=== PATIENT | female | born 1955 | race Caucasian/White ===

== ENCOUNTER 2023-05-18 10:45 | Emergency (ER) | payer OTHER ==
[~2023-05-18] VITALS: Ht 167.6 cm; Wt 84.1 kg
[2023-05-18 11:22] LABS: BASOPHILS # (AUTO) 0.1 X10'3 (0-0.2); BASOPHILS % (AUTO) 0.4 % (0-1); EOSINOPHILS # (AUTO) 0.1 X10'3 (0-0.9); EOSINOPHILS % (AUTO) 0.8 % (0-6); HEMATOCRIT 37.5 % (35.0-45.0); HEMOGLOBIN 11.7 g/dl (12.0-16.0); LYMPHOCYTES % (AUTO) 6.4 % (21-51); MEAN CORPUSCULAR HEMOGLOBIN 27.2 PG (27.0-31.0); MEAN CORPUSCULAR HGB CONC 31.2 g/dL (33.0-36.5); MEAN PLATELET VOLUME 7.1 FL (7.4-10.4); MONOCYTES % (AUTO) 5.9 % (2-12); NEUTROPHILS % (AUTO) 86.5 % (42-75); PLATELET COUNT 461 X10'3 (140-440); RED BLOOD COUNT 4.31 X10'6 (4.20-5.60); RED CELL DISTRIBUTION WIDTH 14.6 % (11.5-14.5); WHITE BLOOD COUNT 16.2 X10'3 (4.5-11.0)
[2023-05-18 11:35] LABS: ALANINE AMINOTRANSFERASE 18 U/L (12-78); ALBUMIN 2.8 G/DL (3.4-5.0); ALBUMIN/GLOBULIN RATIO 0.5 (1.1-1.5); ALKALINE PHOSPHATASE 111 IU/L (46-116); ANION GAP 14 (8-16); ASPARTATE AMINO TRANSFERASE 12 U/L (10-37); BILIRUBIN,TOTAL 0.3 MG/DL (0.1-1.0); BLOOD UREA NITROGEN 29 MG/DL (7-18); BUN/CREATININE RATIO 12.7 (10.0-20.0); CALCIUM 10.5 MG/DL (8.5-10.1); CHLORIDE 104 MMOL/L (99-107); CREATININE 2.28 MG/DL (0.40-0.90); GLUCOSE 269 MG/DL (70-104); SODIUM 138 MMOL/L (135-145); TOTAL CARBON DIOXIDE 20.1 MMOL/L (24-32); TOTAL PROTEIN 8.4 G/DL (6.4-8.2); eCRCL 23 ML/MIN; eGFR 21 ML/MIN
[2023-05-18 11:36] LABS: LIPASE < 50 U/L (73-393)
--- NOTE | 2023-05-18 14:27 | NUR ---
KID[employer] PT REPORTS MAKES LITTLE URINE OUTPUT
[2023-05-18 17:09] LABS: BILIRUBIN,URINE NEGATIVE (Neg); CLARITY,URINE CLOUDY (Clear); COLOR,URINE YELLOW (Yellow); GLUCOSE, URINE NEGATIVE (Neg); KETONES,URINE NEGATIVE (Neg); LEUKOCYTE ESTERASE ,URINE LARGE (Neg); NITRITES, URINE POSITIVE (Neg); OCCULT BLOOD,URINE SMALL (Neg); PH,URINE 5.5 (4.8-8.0); PROTEIN,URINE 30 mg/dl (Neg); UROBILINOGEN,URINE 0.2 E.U/dL (0.2-1.0)
[2023-05-18 17:15] LABS: UA COLLECTION TYPE CLN CATCH MIDSTREAM
[2023-05-18 17:16] LABS: BACTERIA,URINE 4+ /HPF (Neg); WBC,URINE TNTC /HPF (0-4)
[2023-05-18 17:17] LABS: SQUAMOUS EPITHELIAL CELL,UR FEW /LPF (FEW); WBC CLUMPS,URINE MODERATE /HPF (NEGATIVE)
[2023-05-18 17:20] LABS: HYALINE CASTS 0-3 /LPF (NEGATIVE)
[2023-05-18] MEDS ORDERED: normal saline 1000ml 1,000 ML IV ONE (18:30)
[2023-05-18] MEDS ORDERED: CefTRIAXone/D5W-Rocephin 1gm 50 ML IV ONE (18:30)
[2023-05-18] MEDS ORDERED: ondansetron/PF 4mg/2ml inj IV ONE (18:30)
[2023-05-18 18:34] VITALS: TEMP 98.1
[2023-05-18 18:54] LABS: PRO BRAIN NATRIURETIC PEPTIDE 1209 PG/ML (0-125)
[2023-05-18] MEDS ORDERED: CEPH250T PO (21:33)
[2023-05-18] MEDS ORDERED: ONDA8TAB13 PO (21:33)
[2023-05-18 22:07] VITALS: BP 138/88; PULSE 85; RESP 16; O2SAT 95
== END 2023-05-18 22:12 | disposition home or self-care (01) ==
LOC: ER 10:46
DX: N39.0 Urinary tract infection, site not specified (principal); R11.2 Nausea with vomiting, unspecified
CPT/HCPCS: 36415; 74176; 80053; 80197; 81001; 83605; 83690; 83880; 84145; 85025; 87040; 87077; 87088; 87186; 96374; 96375; 99285; J0696; J2405; J7030